=== PATIENT | male | born 1950 | race Caucasian/White ===

== ENCOUNTER 2021-05-16 10:45 | Emergency (ER) | payer MEDICARE, OTHER ==
[~2021-05-16] VITALS: Ht 172.7 cm; Wt 81.7 kg
[2021-05-16] MEDS ORDERED: PRINIVIL20 MG PO (11:00)
[2021-05-16] MEDS ORDERED: PROAIR HFA8.5 GM INH (11:31)
[2021-05-16] MEDS ORDERED: PREDNISONE20 MG PO (11:31)
--- OUTSIDE RECORDS SUMMARY | 2021-05-16 13:12 | XMS ---
PreManage Notification: [employer] Events No recent Security Events currently on file CRITERIA MET - [facility] - 2 Visits in 30 Days CARE PROVIDERS There are no care providers on record at this time. Anthony has no Care Guidelines for this patient. Isak VISIT COUNT (12 MO.) [address] TOTAL 2 NOTE: Visits indicate total known visits. ED/C VISIT TRACKING (12 MO.) [facility] COMPLAINT: - FLU SYMPTOMS, CHILLS, SORE THROAT, CONGESTION 05/13/2021 13:17 [facility] [place] TYPE: Emergency DIAGNOSES: - Epistaxis - BLOODY NOSE INPATIENT VISIT TRACKING (12 MO.) No inpatient visits to display in this time frame [email or web address]
== END 2021-05-16 14:20 | disposition home or self-care (01) ==
LOC: ED 10:45
DX: U07.1 COVID-19 (principal); I10 Essential (primary) hypertension; Z79.899 Other long term (current) drug therapy
CPT/HCPCS: 99284-25; J7050; M0245

== ENCOUNTER 2022-04-23 10:25 | Emergency (ER) | payer MEDICARE, OTHER ==
[~2022-04-23] VITALS: Ht 172.7 cm; Wt 81.7 kg
[~2022-04-23 10:25] MED LIST: PREDNISONE20 MG PO; PRINIVIL20 MG PO; PROAIR HFA8.5 GM INH
== END 2022-04-23 12:22 | disposition home or self-care (01) ==
LOC: ED 10:25
DX: U07.1 COVID-19 (principal); Z76.0 Encounter for issue of repeat prescription; I10 Essential (primary) hypertension; Z79.899 Other long term (current) drug therapy
CPT/HCPCS: 96374; 99283-25